=== PATIENT | male | born 1955 | race Caucasian/White ===

== ENCOUNTER 2019-08-08 09:41 | Outpatient (CLI) | payer BC, SELFPAY ==
--- NOTE | ~2019-08-08 | CT_ITS ---
EXAMINATION:CT chest w con DATE: 08/08/2019 10:20 INDICATION: Benign thymoma. TECHNIQUE: Computed tomography (CT) of the chest was performed with 75 mL Omnipaque 350 intravenous c ontrast. Automated exposure control and iterative reconstruction technique were employed. The dose-le ngth product (DLP) was 608.92 mGy-cm. COMPARISON: None. FINDINGS: The lungs demonstrate minimal atelectasis. A calcified left lower lobe nodule and calcified left hilar and paraesophageal lymph nodes are consistent with old granulomatous disease. No pleural effusion. The heart size is normal. No pericardial effusion. There are gallstones in the gallbladder, which is normal in size. There is a 2.2 cm cyst in the liver. There are bridging endplate osteophyte s at multiple levels in the spine, consistent with diffuse idiopathic skeletal hyperostosis (DISH). IMPRESSION: 1. No evidence of a thymoma. Reviewed, dictated and finalized at location A.
[2019-08-08 10:15] LABS: Estimated Glomerular Filt Rate > 60
== END 2019-08-08 09:42 | disposition home or self-care (01) ==
PROVIDERS: PCP Internal Medicine; Visit Provider Psychiatry & Neurology Neurology
DX: D15.0 Benign neoplasm of thymus (principal)
CPT/HCPCS: 36415; 71260; Q9967